=== PATIENT | male | born 1975 | race Caucasian/White ===

== ENCOUNTER 2018-01-15 15:09 | Emergency (ER) | END 2018-01-15 18:08 | disposition home or self-care (01) ==

== ENCOUNTER 2018-01-18 11:53 | Emergency (ER) | END 2018-01-18 12:30 | disposition home or self-care (01) ==

== ENCOUNTER 2018-01-22 15:20 | Emergency (ER) | END 2018-01-22 16:52 | disposition home or self-care (01) ==